=== PATIENT | female | born 1995 | race Caucasian/White ===

== ENCOUNTER 2017-01-25 09:47 | Outpatient (CLI) | payer OTHER ==
[2017-01-25 10:33] VITALS: BP 107/70
[2017-01-25 14:12] VITALS: BP 101/66
== END 2017-01-25 16:08 | disposition home or self-care (01) ==
LOC: LDRP-OP 09:47 → 2WEST 09:48 → LDRP-OP 04-12 20:36
DX: O40.3XX0 Polyhydramnios, third trimester, not applicable or unspecified (principal); O30.033 Twin pregnancy, monochorionic/diamniotic, third trimester; O36.5932 Maternal care for other known or suspected poor fetal growth, third trimester, fetus 2; O99.213 Obesity complicating pregnancy, third trimester; E66.9 Obesity, unspecified; Z3A.35 35 weeks gestation of pregnancy; J45.909 Unspecified asthma, uncomplicated
CPT/HCPCS: 59025; G0378; J0702

== ENCOUNTER 2017-01-26 12:12 | Outpatient (CLI) | payer OTHER ==
[2017-01-26 13:07] VITALS: BP 115/70
== END 2017-01-26 16:00 | disposition home or self-care (01) ==
LOC: LDRP-OP 12:12 → 2WEST 12:13 → LDRP-OP 04-12 18:56
DX: O40.3XX0 Polyhydramnios, third trimester, not applicable or unspecified (principal); O30.033 Twin pregnancy, monochorionic/diamniotic, third trimester; Z3A.32 32 weeks gestation of pregnancy
CPT/HCPCS: 59025; G0378

== ENCOUNTER 2017-02-12 13:23 | Outpatient (CLI) | payer OTHER ==
[2017-02-12] VITALS (8 sets, daily range): BP systolic 120–137; BP diastolic 70–87
[2017-02-12 14:27] LABS: ADD MIUA? YES; BILIRUBIN NEGATIVE; BLOOD NEGATIVE; COLOR AMBER ((YELLOW)); GLUCOSE (STRIP) NEGATIVE; KETONES NEGATIVE; LEUKOCYTES SMALL; NITRITE NEGATIVE; PROTEIN (STRIP) 30; SPECIFIC GRAVITY 1.027 (1.000-1.030); UROBILINOGEN 0.2 MG/DL (0.2-1.0)
[2017-02-12 14:30] LABS: EOSINOPHIL (%) 0.7 % (0-5); EOSINOPHIL COUNT 0.1 K/uL (0-0.3); HEMATOCRIT 27.6 % (36.0-46.0); IMMATURE GRANULOCYTE (%) 0.7 % (0.0-0.7); IMMATURE GRANULOCYTE COUNT 0.1 K/uL; INSTRUMENT ABS NEUTROPHIL CT 6.3 K/uL; LYMPHOCYTE COUNT 1.6 K/uL (1.0-2.8); MCH 30.7 PG (29.0-34.0); MCHC 32.6 G/DL (30.0-36.0); MCV 94.2 FL (83-99); MEAN PLAT.VOLUME 11.2 uM^3 (9.5-12.4); MONOCYTE (%) 7.9 % (3-12); MONOCYTE COUNT 0.7 K/uL (0-0.8); NEUTROPHIL (%) 72.6 % (45-76); NEUTROPHIL COUNT 6.3 K/uL (1.8-6.4); PLATELET COUNT 183 K/uL (156-360); RBC DIS.WIDTH-CV 13.8 % (11.8-14.6); RBC DIS.WIDTH-SD 46.7 % (39-53); RED BLOOD COUNT 2.93 M/uL (3.80-5.20); WHITE BLOOD COUNT 8.7 K/uL (4.1-10.2)
[2017-02-12 14:39] LABS: UR CREATININE CONCENTRATION 199.6 MG/DL
[2017-02-12 14:58] LABS: ALKALINE PHOSPHATASE 134 IU/L (3-129); ANION GAP 9 MEQ/L (2-14); CHLORIDE 106 MEQ/L (99-109); GFR ESTIMATE (CALCULATED) > 59 mL/min/; GLUCOSE 92 mg/dL (70-99); LACTATE DEHYDROGENASE 128 IU/L (20-246); SAMPLE HEMOLYSIS CHECK 0; SAMPLE ICTERIC CHECK 0; SAMPLE LIPEMIA CHECK 0; SODIUM 136 MEQ/L (136-147); TOTAL BILIRUBIN 0.3 MG/DL (0.0-1.0); UREA NITROGEN (BUN) 9 mg/dL (9-23); URIC ACID 4.9 mg/dL (3.1-9.2)
[2017-02-12 15:37] LABS: BACTERIA 1+ /HPF; CASTS NONE SEEN /LPF; CRYSTALS PRESENT; EPITHELIAL CELLS RARE /HPF; MUCUS NONE SEEN /LPF; RED BLOOD CELLS NONE SEEN /HPF (0-5); UCUL ADDED? NO; URIC ACID CRYSTALS 2+ /HPF; WHITE BLOOD CELLS 0-5 /HPF (0-5)
[2017-02-12] MEDS ORDERED: FIORICET,ESG1 TABLET PO (17:49)
== END 2017-02-12 18:55 | disposition home or self-care (01) ==
LOC: LDRP-OP → 2WEST 13:24 → LDRP-OP 04-20 16:24
PROVIDERS: Obstetrics & Gynecology
DX: O13.3 Gestational [pregnancy-induced] hypertension without significant proteinuria, third trimester (principal); O30.033 Twin pregnancy, monochorionic/diamniotic, third trimester; Z3A.35 35 weeks gestation of pregnancy; Z83.3 Family history of diabetes mellitus; Z82.49 Family history of ischemic heart disease and other diseases of the circulatory system; Z83.49 Family history of other endocrine, nutritional and metabolic diseases
CPT/HCPCS: 59025; 80053; 81003; 82570; 83615; 84156; 84550; 85025; 86900; 86901; 87086; G0378

== ENCOUNTER 2017-02-19 11:43 | Inpatient (IN) | payer OTHER ==
[~2017-02-19] VITALS: Ht 157.5 cm; Wt 110.0 kg
[~2017-02-19 11:43] MED LIST: FIORICET,ESG1 TABLET PO
[2017-02-19 12:26] VITALS: BP 131/87
[2017-02-19] MEDS ORDERED: ASPIR 8181 M1 PO (12:44)
[2017-02-19] MEDS ORDERED: IRON325 M1 PO (12:45)
[2017-02-19 13:55] LABS: EOSINOPHIL (%) 0.8 % (0-5); EOSINOPHIL COUNT 0.1 K/uL (0-0.3); HEMATOCRIT 28.5 % (36.0-46.0); IMMATURE GRANULOCYTE (%) 0.4 % (0.0-0.7); LYMPHOCYTE COUNT 1.8 K/uL (1.0-2.8); MCH 30.5 PG (29.0-34.0); MCHC 32.3 G/DL (30.0-36.0); MCV 94.4 FL (83-99); MEAN PLAT.VOLUME 11.5 uM^3 (9.5-12.4); MONOCYTE (%) 6.4 % (3-12); MONOCYTE COUNT 0.5 K/uL (0-0.8); NEUTROPHIL (%) 71.4 % (45-76); PLATELET COUNT 212 K/uL (156-360); RBC DIS.WIDTH-CV 13.6 % (11.8-14.6); RBC DIS.WIDTH-SD 46.7 % (39-53); RED BLOOD COUNT 3.02 M/uL (3.80-5.20); WHITE BLOOD COUNT 8.5 K/uL (4.1-10.2)
[2017-02-19 14:08] VITALS: BP 115/68
[2017-02-19 18:05] VITALS: BP 123/87
[2017-02-19 19:00] VITALS: BP 144/70
[2017-02-19 20:56] VITALS: BP 137/70
[2017-02-19 22:48] VITALS: BP 136/63
[2017-02-20 00:54] VITALS: BP 122/71
[2017-02-20 02:46] VITALS: BP 118/70
[2017-02-20 07:26] VITALS: BP 120/56
[2017-02-20 07:32] LABS: EOSINOPHIL (%) 0.3 % (0-5); HEMATOCRIT 25.9 % (36.0-46.0); IMMATURE GRANULOCYTE (%) 0.5 % (0.0-0.7); IMMATURE GRANULOCYTE COUNT 0.1 K/uL; INSTRUMENT ABS NEUTROPHIL CT 7.9 K/uL; LYMPHOCYTE COUNT 2.4 K/uL (1.0-2.8); MCHC 31.7 G/DL (30.0-36.0); MCV 94.9 FL (83-99); MEAN PLAT.VOLUME 11.8 uM^3 (9.5-12.4); MONOCYTE (%) 6.9 % (3-12); MONOCYTE COUNT 0.8 K/uL (0-0.8); NEUTROPHIL (%) 70.8 % (45-76); NEUTROPHIL COUNT 7.9 K/uL (1.8-6.4); PLATELET COUNT 210 K/uL (156-360); RBC DIS.WIDTH-CV 13.5 % (11.8-14.6); RBC DIS.WIDTH-SD 46.2 % (39-53); RED BLOOD COUNT 2.73 M/uL (3.80-5.20)
[2017-02-20 07:33] LABS: WHITE BLOOD COUNT 11.2 K/uL (4.1-10.2)
[2017-02-20 07:42] LABS: ALKALINE PHOSPHATASE 115 IU/L (3-129); ANION GAP 8 MEQ/L (2-14); CHLORIDE 105 MEQ/L (99-109); GFR ESTIMATE (CALCULATED) > 59 mL/min/; GLUCOSE 70 mg/dL (70-99); POTASSIUM 4.5 MEQ/L (3.7-5.4); SAMPLE HEMOLYSIS CHECK 0; SAMPLE ICTERIC CHECK 0; SAMPLE LIPEMIA CHECK 0; SODIUM 137 MEQ/L (136-147); TOTAL BILIRUBIN 0.3 MG/DL (0.0-1.0); UREA NITROGEN (BUN) 9 mg/dL (9-23)
[2017-02-20 11:18] VITALS: BP 87/52
[2017-02-20 11:20] VITALS: BP 113/60
[2017-02-20 16:11] VITALS: BP 111/70
[2017-02-21 07:22] VITALS: BP 102/70
[2017-02-21 10:43] VITALS: BP 132/82
[2017-02-21 14:51] VITALS: BP 91/51
[2017-02-21 19:26] VITALS: BP 131/82
[2017-02-21 23:29] VITALS: BP 106/56
[2017-02-22 03:50] VITALS: BP 116/76
[2017-02-22 08:00] VITALS: BP 146/88
[2017-02-22 11:30] VITALS: BP 142/84
[2017-02-22 14:25] VITALS: BP 125/75
[2017-02-22 19:24] VITALS: BP 125/76
[2017-02-22 22:41] VITALS: BP 114/67
[2017-02-23 03:18] VITALS: BP 129/84
[2017-02-23 07:42] VITALS: BP 123/75
[2017-02-23] MEDS ORDERED: IBUPROFEN800 MG PO (09:24)
[2017-02-23] MEDS ORDERED: ENDOCET 5-3251 EACH PO (09:24)
[2017-02-23] MEDS ORDERED: IRON325 M1 PO (09:24)
[2017-02-23 10:43] VITALS: BP 128/77
[2017-02-23 19:51] VITALS: BP 145/89
== END 2017-02-23 23:20 | disposition home or self-care (01) | DRG 765 ==
LOC: LDRP-OP 11:43 → 2WEST 11:44 → LDRP-OP 04-20 19:33
PROVIDERS: Obstetrics & Gynecology
PROC: 10D00Z1 Extraction of Products of Conception, Low, Open Approach (ICD-10-PCS; principal; 2017-02-19)
DX: O32.1XX1 Maternal care for breech presentation, fetus 1 (principal); O36.5931 Maternal care for other known or suspected poor fetal growth, third trimester, fetus 1; O99.02 Anemia complicating childbirth; D62 Acute posthemorrhagic anemia; O32.1XX2 Maternal care for breech presentation, fetus 2; O30.033 Twin pregnancy, monochorionic/diamniotic, third trimester; O13.4 Gestational [pregnancy-induced] hypertension without significant proteinuria, complicating childbirth; O99.214 Obesity complicating childbirth; E66.9 Obesity, unspecified; O69.1XX2 Labor and delivery complicated by cord around neck, with compression, fetus 2; Z3A.36 36 weeks gestation of pregnancy; Z37.2 Twins, both liveborn
CPT/HCPCS: 80053; 85025; 86900; 86901; 87081; 88307; J0690; J1100; J1200; J2274; J2405; J2590; J3010; J7120

== ENCOUNTER 2017-04-05 20:04 | Emergency (ER) | payer OTHER ==
[~2017-04-05] VITALS: Ht 160 cm; Wt 99.7 kg
[~2017-04-05 20:04] MED LIST changes: +ASPIR 8181 M1 PO; +ENDOCET 5-3251 EACH PO; +IBUPROFEN800 MG PO; +IRON325 M1 PO
[2017-04-05 21:20] VITALS: BP 141/86
== END 2017-04-05 21:30 | disposition home or self-care (01) ==
LOC: EME 20:04
DX: O90.0 Disruption of cesarean delivery wound (principal)
CPT/HCPCS: 87070; 87075; 87076; 87205; 99281; 99283